=== PATIENT | female | born 1975 | race American Indian/Alaskan Native ===

== ENCOUNTER 2021-07-19 06:20 | Day surgery (SDC) | payer BC ==
--- NOTE | 2021-07-18 19:28 | History and Physical Report ---
History of Present Illness Date of examination: 07/09/21 Date of admission: 07/19/21 Chief complaint: heavy vaginal bleeding History of present illness: Pt presents with h/o heavy vaginal Bleeding. All risk, benefits, and alternatives were d/w pt and she desires novasure ablation. Consents signed and placed on the chart. I d/w risk of failure and need for additional procedures in case of failure. Risk of uterine perforation, bleeding leading to hysterecomy, infection was also d/w pt and she expressed understanding. Past History Past Medical History: no pertinent history Past Surgical History: no surgical history MOLDER HAND History: fibroids. denies: abnormal PAP smear Social history: no significant social history, single Medications and Allergies Allergies Allergy/AdvReac Type Severity Reaction Status Date / Time Penicillins AdvReac Intermediate Rash Verified 07/12/21 12:14 Home Medications Medication Instructions Recorded Confirmed Last Taken Type Amitriptyline [Elavil] 25 mg PO QHS 07/12/21 07/12/21 Unknown History Gabapentin 300 mg PO BID 07/12/21 07/12/21 Unknown History Review of Systems All systems: negative - Physical Exam Cardiovascular: Normal S1, Normal S2 Lungs: Positive: Clear to auscultation, Normal air movement Abdomen: Positive: normal appearance, soft. Negative: distention, tenderness, guarding Genitourinary (Female): Positive: other (deferred until EUA) Results All other labs normal. Assessment and Plan - Patient Problems (1) Menorrhagia with regular cycle Status: Acute Plan to address problem: -to OR for above stated procedure -consents signed and placed on the chart.
[~2021-07-19 06:20] MED LIST: GENTAMICIN 90 MG in SODIUM CHLORIDE 0.9% 100 ML IV ONE
[2021-07-19] MEDS ORDERED: LACTATED RINGERS 1,000 ML ONE (06:51)
[2021-07-19] MEDS ORDERED: LACTATED RINGERS 1,000 ML IV SCH (07:00)
[2021-07-19] MEDS ORDERED: LIDOCAINE MPF (2%) 20 MG/1 ML VIAL 5 ML ONE (07:33)
[2021-07-19] MEDS ORDERED: fentaNYL 100 MCG/2 ML INJ ONE (07:33)
[2021-07-19] MEDS ORDERED: propofoL 200 MG/20 ML VIAL IV ONE (07:33)
--- NOTE | 2021-07-19 07:37 | Anesthesia Day of Surgery ---
Anesthesia Day of Surgery - Day of Surgery Patient Examined: Yes Patient H&P Reviewed: Yes Patient is NPO: Yes
[2021-07-19] MEDS ORDERED: MIDAZOLAM 2 MG/2 ML INJ ONE (07:52)
[2021-07-19] MEDS ORDERED: HYDROmorphone 1 MG/1 ML INJ IV PRN ×2 (08:00)
[2021-07-19] MEDS ORDERED: GENTAMICIN/NS 120MG/100ML 120 MG/100 ML BAG IV SCH (08:00)
[2021-07-19] MEDS ORDERED: ONDANSETRON 4 MG/2 ML INJ IV PRN (08:00)
[2021-07-19] MEDS ORDERED: GENTAMICIN 90 MG in SODIUM CHLORIDE 0.9% 100 ML IV ONE (08:00)
[2021-07-19] MEDS ORDERED: SODIUM CHLORIDE 0.9% IRRIG SOLN 2000 ML IR ONE (08:29)
[2021-07-19] MEDS ORDERED: SODIUM CHLORIDE 0.9% IRR 1,500 ML BOTTLE IR ONE (08:42)
--- NOTE | 2021-07-19 08:42 | Operative Report ---
Operative Report Operative Report: Date of procedure: 07/19/2021 Pre-operative diagnosis: Menorrhagia Post-operative diagnosis: Same Procedure name(s): 1. Hysteroscopy 2. NovaSure ablation Surgeon: Kandice Guthrie M.D. Loom Doffer: [id number] Anesthesia: General EBL: Minimal Urine output: 50 cc of clear urine out via straight catheterization prior to the onset of the procedure Fluids: 350 mL Findings: Normal-appearing uterus with thickened endometrium. [place] visualized bilaterally on hysteroscopy. Normal cervix normal vagina no lesions noted. Indications: Patient presented with menorrhagia that was resistant to medical therapy. She desired NovaSure ablation. All risk benefits and alternatives were discussed with the patient. Consents were signed and placed on the chart. Procedure: Patient was taken to the operating room where she was placed under general endotracheal anesthesia she was then prepped and draped in normal steril e fashion in dorsal lithotomy position with legs in Manuelito stirrups. Straight catheterization of the bladder was performed at this time. Sterile speculum was placed inside of the vagina to visualize the entire cervix. The anterior lip of the cervix was grasped with a single-tooth tenaculum and the uterus was sounded to 10 cm. The cervix was then dilated in order to allow passage of the hysteros cope. Hysteroscopy yielded the above-stated findings. The cervical length was noted to be 5 cm. The uterine cavity length was calculated to be 5 cm. The cervix was then dilated more to allow passage of the NovaSure device. With placement of the NovaSure device the cavity width was noted to be 4.0 cm. The integrity of the seal was then tested. The device did pass the testing. The power that was used for the NovaSure ablation was 110. The amount of time of the ablation was 1min 58sec. Hysteroscopy following the ablation noted that there was adequate cauterization of the uterine cavity. Patient did receive clindamycin and gentamicin prior to the onset of the procedure. All instruments were removed from the vagina and the cervix. Patient tolerated the procedure well. All counts were correct.
--- NOTE | 2021-07-19 08:45 | Short Stay Summary ---
Short Stay Documentation Date of service: 07/19/21 - History H&P: dictated Social history: no significant social history, single - Allergies and Medications Current Medications: Allergies Penicillins Adverse Reaction (Intermediate, Verified 07/12/21 12:14) Rash RASH AND HIVES Home Medications Medication Instructions Recorded Confirmed Last Taken Type Amitriptyline [Elavil] 25 mg PO QHS 07/12/21 07/12/21 Unknown History Gabapentin 300 mg PO BID 07/12/21 07/12/21 Unknown History Acetaminophen/Codeine [Tylenol 1 tab PO Q6H PRN #10 tab 07/19/21 Unknown Rx /Codeine # 3 tab] Ibuprofen [Motrin 800 MG tab] 800 mg PO Q8HR PRN #30 tablet 07/19/21 Unknown Rx Active Medications Hydromorphone HCl (Hydromorphone 1 Mg/1 Ml Inj) 0.25 mg IV Q10MIN PRN PRN Reason: Pain, Moderate (4-6) Stop: 07/19/21 18:00 Hydromorphone HCl (Hydromorphone 1 Mg/1 Ml Inj) 0.5 mg IV Q10MIN PRN PRN Reason: Pain , Severe (7-10) Stop: 07/19/21 17:00 Gentamicin Sulfate/Sodium Chloride (Gentamicin/Ns 120mg/100ml) 120 mg in 100 mls @ 200 mls/hr IV ONCE@0800 MAGALY Stop: 07/19/21 15:00 Lactated Ringer's (Lactated Ringers) 1,000 mls @ 75 mls/hr IV DIRECT MAGALY Stop: 07/19/21 21:00 Ondansetron HCl (Ondansetron 4 Mg/2 Ml Inj) 4 mg IV ONCE PRN PRN Reason: Nausea And Vomiting Stop: 07/19/21 17:00 - Brief post op/procedure progress note Date of procedure: 07/19/21 Pre-op diagnosis: Menorrhagia Post-op diagnosis: same Procedure: Novasure Ablation Hysteroscopy Anesthesia: GETA Findings: See operative report Surgeon: GHASSAN RAMIREZ Estimated blood loss: minimal Pathology: none Condition: stable - Hospital course Hospital course: Patient was admitted for above-stated procedure. She will have recovery in the PACU. Once she has met discharge criteria she will be discharged home. Patient will follow up in office in 1 week for postoperative follow-up. - Disposition Condition at discharge: Good Disposition: 01 HOME / SELF CARE / HOMELESS - Discharge Diagnoses (1) Menorrhagia with regular cycle Status: Acute Short Stay Discharge Plan Activity: no restrictions Weight Bearing Status: Weight Bear as Tolerated Diet: regular Follow up with: KRUPA MCCORD MD [Primary Care Provider] - 7 Days Prescriptions: Ibuprofen [Motrin 800 MG tab] 800 mg PO Q8HR PRN #30 tablet PRN Reason: Pain, Moderate (4-6) Acetaminophen/Codeine [Tylenol /Codeine # 3 tab] 1 tab PO Q6H PRN #10 tab PRN Reason: Pain , Severe (7-10)
[2021-07-19] MEDS ORDERED: ONDANSETRON 4 MG/2 ML INJ ONE (08:50)
[2021-07-19] MEDS ORDERED: dexAMETHasone 20 MG/5 ML VIAL ONE (08:50)
[2021-07-19] MEDS ORDERED: KETOROLAC 30 MG/1 ML INJ ONE (08:50)
[2021-07-19 10:55] VITALS: BP 135/86
--- NOTE | 2021-07-19 11:02 | Post Anesthesia Evaluation ---
- Post Anesthesia Evaluation Patient Participated: Yes Airway Patent: Yes Stable Respiratory Function: Yes Nausea/Vomiting: No Temp > 96.8F: Yes Pain Manageable: Yes Adequeate Hydration: Yes Anesthesia Complications: No Block Receding Appropriately: Not Applicable Patient on Ventilator: No
== END 2021-07-19 10:23 | disposition home or self-care (01) ==
LOC: OR 06:20
PROVIDERS: ATTEND Obstetrics & Gynecology
DX: N92.0 Excessive and frequent menstruation with regular cycle (principal); G43.909 Migraine, unspecified, not intractable, without status migrainosus; K21.9 Gastro-esophageal reflux disease without esophagitis; F32.9 Major depressive disorder, single episode, unspecified; F41.9 Anxiety disorder, unspecified; D64.9 Anemia, unspecified; Z88.0 Allergy status to penicillin; Z79.899 Other long term (current) drug therapy; Z98.890 Other specified postprocedural states
CPT/HCPCS: 58563; 81025; J1100; J1170; J1580; J1885; J2250; J2405; J2704; J3010; J3490; J7120; J7502